=== PATIENT | male | born 1945 | race Caucasian/White ===

== ENCOUNTER → 2018-01-07 | Outpatient (CLI) | payer OTHER | END | disposition home or self-care (01) | LOC: RAD 13:37 | PROVIDERS: ATTEND Emergency Medicine | DX: N13.2 Hydronephrosis with renal and ureteral calculous obstruction (principal) | CPT/HCPCS: 76770 ==

== ENCOUNTER 2018-01-16 08:00 | Day surgery (SDC) | payer MEDICARE, OTHER ==
[~2018-01-16] VITALS: Ht 177.8 cm; Wt 77.3 kg
[2018-01-16 08:48] VITALS: BP 159/90
[2018-01-16] MEDS ORDERED: LACTATED RINGERS 1,000 ML IV SCH (08:59)
[2018-01-16] MEDS ORDERED: MULT-658 PO (09:02)
[2018-01-16] MEDS ORDERED: MAGNESIUM PO (09:02)
[2018-01-16] MEDS ORDERED: TAMS0.4C2 PO (09:02)
[2018-01-16] MEDS ORDERED: NAPROXEN PO (09:02)
[2018-01-16] MEDS ORDERED: ALEVE PO (09:02)
[2018-01-16] MEDS ORDERED: FENTANYL PF 250 MCG/5ML ONE (09:24)
[2018-01-16] MEDS ORDERED: MIDAZOLAM 1 MG/ML, 2ML ONE (09:24)
[2018-01-16] MEDS ORDERED: ROCURONIUM 10MG/ML,5ML ONE (09:25)
[2018-01-16] MEDS ORDERED: GLYCOPYRROLATE 0.2MG/1ML, 5ML ONE (09:25)
[2018-01-16] MEDS ORDERED: PROPOFOL 10 MG/ML, 20ML ONE (09:25)
[2018-01-16] MEDS ORDERED: CEFAZOLIN 1,000 MG ONE (09:25)
[2018-01-16] MEDS ORDERED: NEOSTIGMINE 1 MG/ML, 10ML ONE (09:25)
[2018-01-16] MEDS ORDERED: CIPROFLOXACIN/PMX 400MG/200ML 200 ML ONE (09:48)
[2018-01-16] MEDS ORDERED: ACETAMINOPHEN 325 MG TABLET PO PRN (10:00)
[2018-01-16] MEDS ORDERED: hydrALAzine 20 MG/ML, 1ML IV PRN (10:00)
[2018-01-16] MEDS ORDERED: HYDROmorphone 1 MG/ML, 1ML IV PRN (10:00)
[2018-01-16] MEDS ORDERED: PROMETHAZINE 25 MG SUPP PR PRN (10:00)
[2018-01-16] MEDS ORDERED: PROMETHAZINE 12.5 MG SUPP PR PRN (10:00)
[2018-01-16] MEDS ORDERED: PROMETHAZINE 25 MG/ML, 1ML IM PRN ×2 (10:00)
[2018-01-16] MEDS ORDERED: ONDANSETRON 2MG/ML, 2ML IV PRN (10:00)
[2018-01-16] MEDS ORDERED: ONDANSETRON ODT 8 MG PO PRN (10:00)
[2018-01-16] MEDS ORDERED: OXYcodone 5 MG/5 ML ORAL.SOL UDC PO PRN (10:00)
[2018-01-16] MEDS ORDERED: MEPERIDINE/PF 25MG/0.5ML IVPush PRN (10:00)
[2018-01-16] MEDS ORDERED: FENTANYL PF 100 MCG/2ML IV PRN (10:00)
[2018-01-16] MEDS ORDERED: LABETALOL 5MG/ML, 20ML IV PRN (10:00)
[2018-01-16] MEDS ORDERED: PROMETHAZINE 25 MG/ML, 1ML IV PRN (10:00)
[2018-01-16] MEDS ORDERED: MORPHINE SULFATE 4 MG/ML, 1ML IVPush PRN (10:00)
[2018-01-16] MEDS ORDERED: OXYcodone/APAP 5/325MG TABLET PO PRN (11:00)
[2018-01-16] MEDS ORDERED: OMNIPAQUE 350 MG/ML, 50 ML BOTTLE ONE (11:00)
== END 2018-01-16 12:25 | disposition home or self-care (01) ==
LOC: OUT 08:00
PROVIDERS: ATTEND Urology
DX: N20.0 Calculus of kidney (principal); N20.1 Calculus of ureter; N40.0 Benign prostatic hyperplasia without lower urinary tract symptoms; M19.90 Unspecified osteoarthritis, unspecified site; Z87.442 Personal history of urinary calculi; Z88.0 Allergy status to penicillin; Z79.899 Other long term (current) drug therapy; Z98.890 Other specified postprocedural states
CPT/HCPCS: 52356; 74420; 82360; 88300; 93005; C1758; C1769; C2617; C2625; J0744; J2250; J2704; J2710; J3010; J3490; J7120; Q9967; J0690

== ENCOUNTER 2018-02-27 11:29 | Day surgery (SDC) | payer MEDICARE ==
[2018-02-20 11:22] VITALS: BP 165/91
[~2018-02-27] VITALS: Ht 176.5 cm; Wt 75.0 kg
[~2018-02-27 11:29] MED LIST: ACET325T14 PO; ALEVE PO; MAGNESIUM PO; MULT-658 PO; NAPROXEN PO; TAMS0.4C2 PO
[2018-02-27] MEDS ORDERED: ACETAMINOPHEN 500 MG TABLET PO ONE (12:00)
[2018-02-27] MEDS ORDERED: GABAPENTIN 300 MG CAPSULE PO ONE (12:00)
[2018-02-27] MEDS ORDERED: ONDANSETRON ODT 8 MG PO ONE (12:00)
[2018-02-27] MEDS ORDERED: DIAZEPAM 5 MG TABLET PO ONE (12:00)
[2018-02-27 12:10] VITALS: BP 165/91
[2018-02-27] MEDS ORDERED: LACTATED RINGERS 1,000 ML IV SCH (12:10)
[2018-02-27] MEDS ORDERED: FENTANYL PF 100 MCG/2ML ONE (12:34)
[2018-02-27] MEDS ORDERED: EPHEDRINE 50 MG/ML, 1ML ONE (13:26)
[2018-02-27] MEDS ORDERED: FENTANYL PF 250 MCG/5ML ONE (13:44)
[2018-02-27] MEDS ORDERED: HYDROmorphone 2 MG/ML, 1ML IVPush PRN (14:00)
[2018-02-27] MEDS ORDERED: MIDAZOLAM 1 MG/ML, 2ML IV PRN (14:00)
[2018-02-27] MEDS ORDERED: METOPROLOL 1 MG/ML, 5ML IV PRN (14:00)
[2018-02-27] MEDS ORDERED: hydrALAzine 20 MG/ML, 1ML IV PRN (14:00)
[2018-02-27] MEDS ORDERED: ALBUTEROL/IPRATROPIUM 2.5MG/0.5MG, 3 ML NPPB PRN (14:00)
[2018-02-27] MEDS ORDERED: OXYcodone 5 MG/5 ML ORAL.SOL UDC PO PRN (14:00)
[2018-02-27] MEDS ORDERED: PROMETHAZINE 25 MG/ML, 1ML IV PRN (14:00)
[2018-02-27] MEDS ORDERED: ONDANSETRON 2MG/ML, 2ML IV PRN ×2 (14:00→15:00)
[2018-02-27] MEDS ORDERED: FENTANYL PF 100 MCG/2ML IV PRN (14:00)
[2018-02-27] MEDS ORDERED: DEXAMETHASONE 4 MG/ML, 1ML ONE (14:48)
[2018-02-27] MEDS ORDERED: CEFAZOLIN 1,000 MG ONE (14:48)
[2018-02-27] MEDS ORDERED: PROPOFOL 10 MG/ML, 20ML ONE (14:48)
[2018-02-27] MEDS ORDERED: OXYcodone/APAP 5/325MG TABLET PO PRN (15:00)
[2018-02-27] MEDS ORDERED: OXYcodone 5 MG/5 ML ORAL.SOL UDC ONE (15:27)
== END 2018-02-27 17:55 | disposition home or self-care (01) ==
LOC: OUT 11:29
PROVIDERS: ATTEND Urology
DX: N40.1 Benign prostatic hyperplasia with lower urinary tract symptoms (principal); R33.8 Other retention of urine; Z88.0 Allergy status to penicillin
CPT/HCPCS: 52648; J0690; J1100; J2704; J3010; J7120; Q0162

== ENCOUNTER → 2019-04-17 | Outpatient (CLI) | payer MEDICARE ==
[2019-04-17 13:49] LABS: BASOPHILS # (AUTO) 0.09 x10^3/uL (0-0.1); BASOPHILS % (AUTO) 2 % (0-1); EOSINOPHILS # (AUTO) 0.23 x10^3/uL (0-0.4); EOSINOPHILS % (AUTO) 4 % (1-7); LYMPHOCYTES % (AUTO) 32 % (22-44); MD NO; MEAN CORPUSCULAR HEMOGLOBIN 31.6 pg (27.5-34.5); MEAN CORPUSCULAR HGB CONC 33.8 g/dL (33.2-36.2); MEAN CORPUSCULAR VOLUME 93.7 fL (81-97); MEAN PLATELET VOLUME 8.7 fL (7.4-10.4); MONOCYTES # (AUTO) 0.48 x10^3/uL (0.2-0.8); MONOCYTES % (AUTO) 8 % (2-9); NEUTROPHILS # (AUTO) 3.11 x10^3/uL (1.8-6.8); NEUTROPHILS % (AUTO) 55 % (42-75); PLATELET COUNT 216 x10^3/uL (130-400)
[2019-04-17 13:54] LABS: PROTHROMBIN TIME 10.6 Seconds (9.6-11.5)
[2019-04-17 13:57] LABS: CHLORIDE 104 mmol/L (98-107); CREATININE 1.17 mg/dL (0.7-1.3)
[2019-04-17 14:01] LABS: ANION GAP 4 mmol/L (5-15)
[2019-04-17 14:54] LABS: MICROSCOPIC NOT IND
== END | disposition home or self-care (01) ==
LOC: STAR 12:48
PROVIDERS: ATTEND Urology
DX: Z01.818 Encounter for other preprocedural examination (principal); N40.1 Benign prostatic hyperplasia with lower urinary tract symptoms
CPT/HCPCS: 36415; 80048; 81003; 85025; 85610; 87086; 93005

== ENCOUNTER 2019-04-30 10:13 | Day surgery (SDC) | payer MEDICARE ==
[~2019-04-30] VITALS: Ht 177.8 cm; Wt 77.0 kg
[2019-04-30 10:33] VITALS: BP 149/91
[2019-04-30] MEDS ORDERED: LACTATED RINGERS 1,000 ML IV SCH (10:36)
[2019-04-30] MEDS ORDERED: MIDAZOLAM 1 MG/ML, 2ML ONE (12:21)
[2019-04-30] MEDS ORDERED: FENTANYL PF 250 MCG/5ML ONE (12:21)
[2019-04-30] MEDS ORDERED: OPIUM/BELLADONNA SUPP.RECT 16.2-60 MG ONE (13:45)
[2019-04-30] MEDS ORDERED: DIAZEPAM 5 MG/ML, 2ML IV PRN ×2 (14:00)
[2019-04-30] MEDS ORDERED: hydrALAzine 20 MG/ML, 1ML IV PRN (14:00)
[2019-04-30] MEDS ORDERED: ALBUTEROL SULFATE 2.5 MG/3 ML NPPB PRN (14:00)
[2019-04-30] MEDS ORDERED: MEPERIDINE/PF 25MG/0.5ML IVPush PRN (14:00)
[2019-04-30] MEDS ORDERED: METOCLOPRAMIDE 5 MG/ML, 2ML IV PRN (14:00)
[2019-04-30] MEDS ORDERED: KETOROLAC 30 MG/1 ML IV PRN (14:00)
[2019-04-30] MEDS ORDERED: PROMETHAZINE 25 MG/ML, 1ML IV PRN (14:00)
[2019-04-30] MEDS ORDERED: LABETALOL 5MG/ML, 20ML IV PRN (14:00)
[2019-04-30] MEDS ORDERED: HYDROmorphone 1 MG/ML, 1ML INJ IV PRN (14:00)
[2019-04-30] MEDS ORDERED: ONDANSETRON 2MG/ML, 2ML IVPush PRN (14:00)
[2019-04-30] MEDS ORDERED: FENTANYL PF 100 MCG/2ML ONE ×2 (14:11→14:43)
[2019-04-30] MEDS ORDERED: OXYcodone 5 MG/5 ML ORAL.SOL UDC ONE ×2 (14:12→14:21)
[2019-04-30] MEDS: OXYcodone 5 MG/5 ML ORAL.SOL UDC PO PRN ×2 (14:15→14:22)
[2019-04-30] MEDS: FENTANYL PF 100 MCG/2ML IV PRN ×4 (14:15→14:44)
[2019-04-30] MEDS ORDERED: hydrALAzine 20 MG/ML, 1ML ONE (14:43)
[2019-04-30] MEDS ORDERED: SUCCINYLCHOLINE 20 MG/ML, 10ML ONE (15:13)
[2019-04-30] MEDS ORDERED: ROCURONIUM 10MG/ML,5ML ONE (15:13)
[2019-04-30] MEDS ORDERED: PROPOFOL 10 MG/ML, 20ML ONE (15:13)
[2019-04-30] MEDS ORDERED: CEFAZOLIN 1,000 MG ONE (15:13)
[2019-04-30] MEDS ORDERED: ONDANSETRON 2MG/ML, 2ML ONE (15:13)
== END 2019-04-30 16:40 | disposition home or self-care (01) ==
LOC: OUT 10:13
PROVIDERS: ATTEND Urology
DX: N40.1 Benign prostatic hyperplasia with lower urinary tract symptoms (principal); N32.0 Bladder-neck obstruction; R39.12 Poor urinary stream
CPT/HCPCS: 52630; 88305; C1769; J0330; J0360; J0690; J2250; J2405; J2704; J3010; J7120